=== PATIENT | male | born 1950 | race Caucasian/White ===

== ENCOUNTER 2016-11-17 13:26 | Emergency (ER) | payer MEDICARE, OTHER, SELFPAY ==
[~2016-11-17] VITALS: Ht 154.9 cm; Wt 61.0 kg
[2016-11-17] MEDS ORDERED: LORazepam 1MG TABLET PO ONE (14:00)
[2016-11-17] MEDS ORDERED: LORazepam 1MG TABLET ONE (14:19)
[2016-11-17 14:25] LABS: HEMOGLOBIN 16.1 g/dL (13.7-18.0)
[2016-11-17 14:33] LABS: ASPARTATE AMINO TRANSFERASE 23 U/L (15-37); BLOOD UREA NITROGEN 20 mg/dL (7-18)
[2016-11-17 14:48] VITALS: BP 155/87
[2016-11-17 14:48] LABS: ACETAMINOPHEN < 2 mcg/mL (10-30)
== END 2016-11-17 15:33 | disposition home or self-care (01) ==
LOC: EDUNIT# 13:26 → ED 15:00
DX: F10.950 Alcohol use, unspecified with alcohol-induced psychotic disorder with delusions (principal); Z59.0 Homelessness; I10 Essential (primary) hypertension; F25.9 Schizoaffective disorder, unspecified; F17.210 Nicotine dependence, cigarettes, uncomplicated; F12.10 Cannabis abuse, uncomplicated
CPT/HCPCS: 36415; 80053; 80307; 80329; 85025; 99284; G0480